=== PATIENT | female | born 1935 | race Caucasian/White ===

== ENCOUNTER 2019-01-31 11:34 | Emergency (ER) | payer MEDICARE, BC ==
[~2019-01-31] VITALS: Ht 172.7 cm; Wt 64.0 kg
[2019-01-31 11:40] VITALS: BP 167/66
--- NOTE | 2019-01-31 13:33 | NUR ---
DR DIXON AT BEDSIDE DOING PROCEDURE, AT BEDSIDE.WILL CONT TO MONITOR.
[2019-01-31] MEDS ORDERED: CEPH-572 PO (13:42)
== END 2019-01-31 13:55 | disposition home or self-care (01) ==
LOC: ER 11:34
DX: S50.01XA Contusion of right elbow, initial encounter (principal); S50.11XA Contusion of right forearm, initial encounter; W22.8XXA Striking against or struck by other objects, initial encounter; Y93.89 Activity, other specified; Y92.89 Other specified places as the place of occurrence of the external cause; Y99.9 Unspecified external cause status
CPT/HCPCS: 10140; 99284